=== PATIENT | male | born 1970 | race Two or more races ===

== ENCOUNTER 2024-01-15 22:00 | Emergency (ER) | payer SELFPAY ==
[2024-01-15] MEDS: Lidocaine 1% PF 2 ML SDV ONE (22:45)
[2024-01-15] MEDS: Ondansetron 4 MG Tab.DIS PO ONE (23:46)
[2024-01-15] MEDS: Acetaminophen/HYDROcodone 325-5 MG Tab PO ONE (23:46)
== END 2024-01-15 23:50 | disposition home or self-care (01) ==
LOC: MW.ED 22:00
DX: H60.92 Unspecified otitis externa, left ear (principal); E11.9 Type 2 diabetes mellitus without complications; F17.210 Nicotine dependence, cigarettes, uncomplicated; Z79.84 Long term (current) use of oral hypoglycemic drugs; Z79.899 Other long term (current) drug therapy
CPT/HCPCS: 87651; 99283; A9270; J3490

== ENCOUNTER 2024-05-15 09:36 | Emergency (ER) | payer SELFPAY ==
[2024-05-15] MEDS ORDERED: Sodium Chloride 0.9% 2.5 ML Syringe FLUSH PRN (09:51)
[2024-05-15] MEDS ORDERED: Sodium Chloride 0.9% 10 ML Syringe FLUSH PRN (09:51)
[2024-05-15 10:01] LABS: APPEARANCE,URINE CLEAR; BILIRUBIN,URINE NEGATIVE (NEGATIVE); COLOR,URINE YELLOW; GLUCOSE,URINE >=1000 mg/dL (NEGATIVE); KETONES,URINE 15 mg/dL (NEGATIVE); LEUKOCYTE ESTERASE,URINE NEGATIVE (NEGATIVE); NITRITE,URINE NEGATIVE (NEGATIVE); OCCULT BLOOD,URINE TRACE-INTACT (NEGATIVE); PROTEIN,URINE NEGATIVE (NEGATIVE); UROBILINOGEN,URINE 0.2 EU/dL (<2.0)
[2024-05-15 10:06] LABS: BASE EXCESS VENOUS 1.5 (-2.0-3.0); BICARBONATE,VENOUS 28 mEQ/mL (22-28); PCO2 VENOUS 50 mmHG (41-51); PH,VENOUS 7.36 (7.31-7.41)
[2024-05-15 10:09] LABS: BASOPHILS ABSOLUTE AUTO 0.07 K/uL (0.00-0.20); EOSINOPHILS ABSOLUTE AUTO 0.29 K/uL (0.00-0.45); EOSINOPHILS PERCENT AUTO 4.2 % (0.0-6.0); HEMATOCRIT 44.1 % (42.0-52.0); HEMOGLOBIN 15.8 g/dL (14.0-18.0); IMMATURE GRAN ABSOLUTE AUTO 0.04 K/uL (0.00-0.05); IMMATURE GRAN PERCENT AUTO 0.6 % (0.0-0.4); LYMPHOCYTES ABSOLUTE AUTO 1.46 K/uL (1.00-4.80); LYMPHOCYTES PERCENT AUTO 21.1 % (24.0-44.0); MEAN CORPUSCULAR HEMOGLOBIN 29.3 pg (28.0-32.0); MEAN CORPUSCULAR HGB CONC 35.8 g/dL (32.0-36.0); MEAN CORPUSCULAR VOLUME 81.7 fL (83.0-99.0); MEAN PLATELET VOLUME 11.1 fL (9.4-12.4); MONOCYTES PERCENT AUTO 7.2 % (0.0-8.0); NEUTROPHILS ABSOLUTE AUTO 4.57 K/uL (1.80-7.70); NEUTROPHILS PERCENT AUTO 65.9 % (41.0-71.0); PLATELET COUNT,PLT 167 K/uL (150-400); WHITE BLOOD CELL COUNT,WBC 6.93 K/uL (3.9-11.3)
[2024-05-15] MEDS: Sodium Chloride 0.9% 1,000 ML IV STA (10:10)
[2024-05-15 10:14] LABS: BACTERIA,URINE FEW (NEGATIVE); EPITHELIAL CELLS,URINE OCCASIONAL (NONE-FEW); RBC,URINE 0-2 (0-2/HPF); WBC,URINE 0-3 (0-5/HPF)
[2024-05-15 10:18] LABS: PO2 VENOUS < 30 mmHG (35-45)
[2024-05-15 10:31] LABS: HEMOGLOBIN A1C 12.4 %
[2024-05-15 10:57] LABS: A/G RATIO 1.1 (0.9-1.6); ALBUMIN 3.7 g/dL (3.4-5.0); BILIRUBIN TOTAL 0.4 mg/dL (0.2-1.0); CALCIUM 9.4 mg/dL (8.5-10.1); CARBON DIOXIDE,CO2 26.4 mmol/L (21.0-32.0); CREATININE 0.8 mg/dL (0.8-1.3); EST CRCL DRUG DOSING (CG) 98.58 mL/min; POTASSIUM,K 4.6 mmol/L (3.5-5.1); PROTEIN TOTAL,TP 7.2 g/dL (6.4-8.2)
[2024-05-15] MEDS ORDERED: Glucagon,Human Recombinant 1 MG Vial IM PRN (11:08)
[2024-05-15] MEDS ORDERED: 50% Dextrose in Water 50 ML Syringe IVPUSH PRN (11:08)
[2024-05-15] MEDS: Insulin Regular, Human 100 Units/ML 10 ML Vial IVPUSH ONE (11:31)
== END 2024-05-15 12:30 | disposition home or self-care (01) ==
LOC: MW.ED 09:36
DX: E11.65 Type 2 diabetes mellitus with hyperglycemia (principal); Z75.8 Other problems related to medical facilities and other health care
CPT/HCPCS: 36415; 80053; 81001; 82803; 82947; 83036; 85025; 96360; 99284; J7030; J1815-GY

== ENCOUNTER 2024-07-07 18:41 | Emergency (ER) | payer SELFPAY ==
[2024-07-07] MEDS: Orphenadrine 60 MG/2 ML Inj IM STA (20:00)
[2024-07-07 20:10] LABS: BASOPHILS ABSOLUTE AUTO 0.06 K/uL (0.00-0.20); BASOPHILS PERCENT AUTO 0.7 % (0.0-1.0); EOSINOPHILS ABSOLUTE AUTO 0.37 K/uL (0.00-0.45); EOSINOPHILS PERCENT AUTO 4.2 % (0.0-6.0); HEMATOCRIT 40.9 % (42.0-52.0); HEMOGLOBIN 14.2 g/dL (14.0-18.0); IMMATURE GRAN ABSOLUTE AUTO 0.03 K/uL (0.00-0.05); IMMATURE GRAN PERCENT AUTO 0.3 % (0.0-0.4); LYMPHOCYTES ABSOLUTE AUTO 1.84 K/uL (1.00-4.80); LYMPHOCYTES PERCENT AUTO 20.9 % (24.0-44.0); MEAN CORPUSCULAR HEMOGLOBIN 29.5 pg (28.0-32.0); MEAN CORPUSCULAR HGB CONC 34.7 g/dL (32.0-36.0); MEAN CORPUSCULAR VOLUME 84.9 fL (83.0-99.0); MEAN PLATELET VOLUME 10.4 fL (9.4-12.4); MONOCYTES ABSOLUTE AUTO 0.69 K/uL (0.00-0.80); MONOCYTES PERCENT AUTO 7.8 % (0.0-8.0); NEUTROPHILS ABSOLUTE AUTO 5.81 K/uL (1.80-7.70); NEUTROPHILS PERCENT AUTO 66.1 % (41.0-71.0); PLATELET COUNT,PLT 195 K/uL (150-400); RED BLOOD CELL COUNT 4.82 M/uL (4.52-5.90)
[2024-07-07 20:34] LABS: A/G RATIO 1.2 (0.9-1.6); ALBUMIN 3.7 g/dL (3.4-5.0); BILIRUBIN TOTAL 0.5 mg/dL (0.2-1.0); CALCIUM 8.9 mg/dL (8.5-10.1); CARBON DIOXIDE,CO2 29.1 mmol/L (21.0-32.0); CREATININE 1.2 mg/dL (0.8-1.3); EST CRCL DRUG DOSING (CG) 60.3 mL/min; POTASSIUM,K 4.5 mmol/L (3.5-5.1); PROTEIN TOTAL,TP 6.9 g/dL (6.4-8.2)
[2024-07-07] MEDS: traMADol 50 MG Tab PO STA (21:40)
== END 2024-07-07 21:45 | disposition home or self-care (01) ==
LOC: MW.ED 18:41
DX: G60.8 Other hereditary and idiopathic neuropathies (principal); E11.9 Type 2 diabetes mellitus without complications; F17.210 Nicotine dependence, cigarettes, uncomplicated; Z79.899 Other long term (current) drug therapy; Z79.84 Long term (current) use of oral hypoglycemic drugs; Z75.8 Other problems related to medical facilities and other health care; Z79.51 Long term (current) use of inhaled steroids
CPT/HCPCS: 36415; 72072; 72100; 80053; 85025; 86308; 99283; A9270

== ENCOUNTER 2024-09-28 13:42 | Emergency (ER) | payer SELFPAY ==
[2024-09-28 14:19] LABS: GLUCOSE,POC 242 mg/dL (70-99)
== END 2024-09-28 14:32 | disposition left against medical advice (07) ==
LOC: MW.ED 13:42
DX: Z53.21 Procedure and treatment not carried out due to patient leaving prior to being seen by health care provider (principal)
CPT/HCPCS: 82947

== ENCOUNTER 2025-02-10 21:21 | Emergency (ER) | payer SELFPAY ==
[2025-02-10] MEDS ORDERED: Dexamethasone 4 MG Tab PO ONE (22:23)
[2025-02-10] MEDS ORDERED: Acetaminophen 500 MG Tab PO ONE (22:23)
[2025-02-10] MEDS ORDERED: Ketorolac 30 MG/ML SDV IM ONE (22:23)
[2025-02-10] MEDS ORDERED: Lidocaine 4% Patch TOP ONE (22:23)
== END 2025-02-10 23:44 | disposition home or self-care (01) ==
LOC: MW.ED 21:21
DX: S23.41XA Sprain of ribs, initial encounter (principal); I10 Essential (primary) hypertension; E11.9 Type 2 diabetes mellitus without complications; Z79.84 Long term (current) use of oral hypoglycemic drugs; Z79.899 Other long term (current) drug therapy; W00.0XXA Fall on same level due to ice and snow, initial encounter; Y99.0 Civilian activity done for income or pay
CPT/HCPCS: 71250; 71250-26; 93010; 99283; 99284

== ENCOUNTER 2025-10-03 13:33 | Inpatient (IN) | payer SELFPAY ==
[2025-10-03] MEDS ORDERED: Sodium Chloride 0.9% 2.5 ML Syringe FLUSH PRN (15:22)
[2025-10-03] MEDS ORDERED: Sodium Chloride 0.9% 10 ML Syringe FLUSH PRN (15:22)
[2025-10-03] MEDS: cefTRIAXone 1 GM in Water For Injection, Sterile 10 ML IVPUSH ONE (15:40)
[2025-10-03] MEDS: Albuterol 0.083% 2.5 MG/3 ML Neb Soln NEB ONE ×2 (15:40→17:20)
[2025-10-03] MEDS: Ipratropium 0.02% 0.5 MG/2.5 ML Neb Soln NEB ONE (17:21)
[2025-10-03 19:16] LABS: BASOPHILS ABSOLUTE AUTO 0.01 K/uL (0.00-0.20); BASOPHILS PERCENT AUTO 0.1 % (0.0-1.0); EOSINOPHILS ABSOLUTE AUTO 0.04 K/uL (0.00-0.45); EOSINOPHILS PERCENT AUTO 0.5 % (0.0-6.0); IMMATURE GRAN ABSOLUTE AUTO 0.04 K/uL (0.00-0.05); IMMATURE GRAN PERCENT AUTO 0.5 % (0.0-0.4); LYMPHOCYTES ABSOLUTE AUTO 1.06 K/uL (1.00-4.80); LYMPHOCYTES PERCENT AUTO 12.5 % (24.0-44.0); MEAN PLATELET VOLUME 11.0 fL (9.4-12.4); MONOCYTES ABSOLUTE AUTO 0.12 K/uL (0.00-0.80); MONOCYTES PERCENT AUTO 1.4 % (0.0-8.0); NEUTROPHILS ABSOLUTE AUTO 7.24 K/uL (1.80-7.70); NEUTROPHILS PERCENT AUTO 85.0 % (41.0-71.0); NRBC ABSOLUTE 0.00 K/uL (0.00-0.02); NRBC PERCENT 0.0 /100WBC (0.0-0.2); PLATELET COUNT,PLT 144 K/uL (150-400); RED BLOOD CELL COUNT 4.64 M/uL (4.52-5.90); WHITE BLOOD CELL COUNT,WBC 8.51 K/uL (3.9-11.3)
[2025-10-03 19:43] LABS: A/G RATIO 0.9 (0.9-1.6); ALANINE AMINOTRANSFERASE,ALT 48.0 IU/L (14-63); ASPARTATE AMNIOTRANSFERASE,AST 23.0 IU/L (15-37); BILIRUBIN TOTAL 0.4 mg/dL (0.2-1.0); BLOOD UREA NITROGEN,BUN 23.0 mg/dL (7.0-18.0); CARBON DIOXIDE,CO2 21.6 mmol/L (21.0-32.0); CHLORIDE,CL 105.0 mmol/L (98-107); CREATININE 1.5 mg/dL (0.8-1.3); EST CRCL DRUG DOSING (CG) 55.1 mL/min; GLUCOSE RANDOM 433.0 mg/dL (74-106); POTASSIUM,K 3.6 mmol/L (3.5-5.1); PROTEIN TOTAL,TP 6.9 g/dL (6.4-8.2); SODIUM,NA 140.0 mmol/L (136-148)
[2025-10-03 19:46] LABS: ESTIMATED GFR 55.0 mL/min (>60)
[2025-10-03] MEDS ORDERED: 50% Dextrose in Water 50 ML Syringe IVPUSH PRN ×2 (19:52→22:11)
[2025-10-03 20:00] LABS: BASE EXCESS VENOUS -6.6 (-2.0-3.0); BICARBONATE,VENOUS 20.0 mEq/L (22-29); PCO2 VENOUS 44.0 mmHG (41-51); PH,VENOUS 7.27 (7.32-7.43); PO2 VENOUS 58.0 mmHG (35-45)
[2025-10-03] MEDS: Insulin Regular, Human 100 Units/ML 10 ML Vial IVPUSH ONE (20:13)
[2025-10-03] MEDS: Calcium Gluconate 10% 1 GM/10 ML SDV IVPUSH ONE (20:13)
[2025-10-03] MEDS: Lactated Ringers 1,000 ML IV ONE (20:13)
[2025-10-03] MEDS ORDERED: cefTRIAXone 1 GM in Water For Injection, Sterile 10 ML IVPUSH SCH (22:15)
[2025-10-03] MEDS: Insulin Glargine,Human Rec. Analog 100 Units/ML 3 ML Pen SUBCUT ONE (23:02)
[2025-10-04] MEDS ORDERED: 50% Dextrose in Water 50 ML Syringe IVPUSH PRN ×6 (00:59→09:56)
[2025-10-04 01:18] LABS: LACTIC ACID 3.7 mmol/L (0.4-2.0)
[2025-10-04] MEDS: Insulin Regular, Human 100 Units/ML 10 ML Vial SUBCUT ONE ×3 (01:30→06:04)
[2025-10-04] MEDS: Albuterol 0.083% 2.5 MG/3 ML Neb Soln NEB SCH (04:58)
[2025-10-04 05:32] LABS: BASOPHILS ABSOLUTE AUTO 0.01 K/uL (0.00-0.20); BASOPHILS PERCENT AUTO 0.1 % (0.0-1.0); EOSINOPHILS ABSOLUTE AUTO 0.00 K/uL (0.00-0.45); EOSINOPHILS PERCENT AUTO 0.0 % (0.0-6.0); IMMATURE GRAN ABSOLUTE AUTO 0.06 K/uL (0.00-0.05); IMMATURE GRAN PERCENT AUTO 0.6 % (0.0-0.4); LYMPHOCYTES ABSOLUTE AUTO 1.21 K/uL (1.00-4.80); LYMPHOCYTES PERCENT AUTO 11.5 % (24.0-44.0); MEAN PLATELET VOLUME 10.8 fL (9.4-12.4); MONOCYTES ABSOLUTE AUTO 0.26 K/uL (0.00-0.80); MONOCYTES PERCENT AUTO 2.5 % (0.0-8.0); NEUTROPHILS ABSOLUTE AUTO 8.95 K/uL (1.80-7.70); NEUTROPHILS PERCENT AUTO 85.3 % (41.0-71.0); NRBC ABSOLUTE 0.00 K/uL (0.00-0.02); NRBC PERCENT 0.0 /100WBC (0.0-0.2); PLATELET COUNT,PLT 160 K/uL (150-400); RED BLOOD CELL COUNT 4.30 M/uL (4.52-5.90); WHITE BLOOD CELL COUNT,WBC 10.49 K/uL (3.9-11.3)
[2025-10-04 05:59] LABS: BLOOD UREA NITROGEN,BUN 19.0 mg/dL (7.0-18.0); CARBON DIOXIDE,CO2 23.0 mmol/L (21.0-32.0); CHLORIDE,CL 104.0 mmol/L (98-107); CREATININE 1.1 mg/dL (0.8-1.3); EST CRCL DRUG DOSING (CG) 75.14 mL/min; GLUCOSE RANDOM 365.0 mg/dL (74-106); POTASSIUM,K 4.3 mmol/L (3.5-5.1); SODIUM,NA 137.0 mmol/L (136-148)
[2025-10-04 06:04] LABS: ESTIMATED GFR 80.0 mL/min (>60)
[2025-10-04] MEDS: Insulin Glargine,Human Rec. Analog 100 Units/ML 3 ML Pen SUBCUT ONE (11:55)
[2025-10-04] MEDS: cefTRIAXone 1 GM in Water For Injection, Sterile 10 ML IVPUSH SCH (14:52)
[2025-10-04] MEDS ORDERED: Insulin Glargine,Human Rec. Analog 100 Units/ML 3 ML Pen SUBCUT SCH (21:00)
[2025-10-04] MEDS ORDERED: Insulin Glargine,Human Rec. Analog 100 Units/ML 3 ML Pen SUBCUT ONE (22:12)
[2025-10-05 05:59] LABS: BASOPHILS ABSOLUTE AUTO 0.02 K/uL (0.00-0.20); BASOPHILS PERCENT AUTO 0.2 % (0.0-1.0); EOSINOPHILS ABSOLUTE AUTO 0.18 K/uL (0.00-0.45); EOSINOPHILS PERCENT AUTO 1.7 % (0.0-6.0); IMMATURE GRAN ABSOLUTE AUTO 0.04 K/uL (0.00-0.05); IMMATURE GRAN PERCENT AUTO 0.4 % (0.0-0.4); LYMPHOCYTES ABSOLUTE AUTO 2.33 K/uL (1.00-4.80); LYMPHOCYTES PERCENT AUTO 22.1 % (24.0-44.0); MEAN PLATELET VOLUME 11.1 fL (9.4-12.4); MONOCYTES ABSOLUTE AUTO 0.68 K/uL (0.00-0.80); MONOCYTES PERCENT AUTO 6.4 % (0.0-8.0); NEUTROPHILS ABSOLUTE AUTO 7.31 K/uL (1.80-7.70); NEUTROPHILS PERCENT AUTO 69.2 % (41.0-71.0); NRBC ABSOLUTE 0.00 K/uL (0.00-0.02); NRBC PERCENT 0.0 /100WBC (0.0-0.2); PLATELET COUNT,PLT 164 K/uL (150-400); RED BLOOD CELL COUNT 4.47 M/uL (4.52-5.90); WHITE BLOOD CELL COUNT,WBC 10.56 K/uL (3.9-11.3)
[2025-10-05 06:21] LABS: BLOOD UREA NITROGEN,BUN 17.0 mg/dL (7.0-18.0); CARBON DIOXIDE,CO2 27.3 mmol/L (21.0-32.0); CHLORIDE,CL 106.0 mmol/L (98-107); CREATININE 1.0 mg/dL (0.8-1.3); EST CRCL DRUG DOSING (CG) 82.65 mL/min; GLUCOSE RANDOM 275.0 mg/dL (74-106); POTASSIUM,K 3.7 mmol/L (3.5-5.1); SODIUM,NA 141.0 mmol/L (136-148)
[2025-10-05 06:23] LABS: ESTIMATED GFR 90.0 mL/min (>60)
[2025-10-05] MEDS: Insulin Glargine,Human Rec. Analog 100 Units/ML 3 ML Pen SUBCUT SCH (08:52)
== END 2025-10-05 13:10 | disposition home or self-care (01) | DRG 202 ==
LOC: MW.ED 13:33 → MW.MS 20:36
PROVIDERS: ADMIT Internal Medicine; ATTEND Internal Medicine
DX: J20.9 Acute bronchitis, unspecified (principal); N17.9 Acute kidney failure, unspecified; E11.65 Type 2 diabetes mellitus with hyperglycemia; E86.0 Dehydration; I10 Essential (primary) hypertension; K21.9 Gastro-esophageal reflux disease without esophagitis; F17.200 Nicotine dependence, unspecified, uncomplicated; Z79.1 Long term (current) use of non-steroidal anti-inflammatories (NSAID); Z79.4 Long term (current) use of insulin; Z79.2 Long term (current) use of antibiotics; Z98.41 Cataract extraction status, right eye
CPT/HCPCS: 36415; 71046; 71046-26; 80048; 80053; 82009; 82803; 82947; 83036; 83605; 85025; 87428-QW; 87651; 94640; 96361; 96365; 96375; 99222; 99232; 99238; 99284; 99285-25; A9270-GY; J0456; J0612; J0696; J1815-GY; J2919; J7030; J7050; J7120; J7644